=== PATIENT | male | born 1995 | race Caucasian/White ===

== ENCOUNTER 2025-04-07 21:15 | Inpatient (IN) | payer OTHER, SELFPAY ==
[2025-04-07] VITALS (9 sets, daily range): BP systolic 127–187; BP diastolic 70–99; PULSE 80–111; RESP 15–26; TEMP 36.6–36.8; O2SAT 92–100; BMI 27.6
--- NOTE | 2025-04-07 22:10 | RAD_ITS ---
PROCEDURE: RIGHT ANKLE MIN 3 VIEWS; TIBIA FIBULA 2 VIEWS 04/07/2025 REASON FOR EXAM: TRAUMA TECHNIQUE: Procedure Code: RADANK; RADTF Modality: DX Procedure: ANKLE MIN 3 VIEWS; TIBIA FIBULA 2 VIEWS Laterality: Right COMPARISON: None. FINDINGS: Acute laterally displaced oblique fracture of the distal tibial shaft. Acute medial displaced oblique fracture of the mid fibular shaft, with posterolateral angulation. Congruent ankle mortise. No dislocation. Preserved visualized joint spaces. Generalized soft tissue swelling about the lower leg/ankle. RAD/Tibia & Fibula 2 Views IMPRESSION: Acute displaced oblique fractures of the mid fibular shaft, and distal tibial s haft. Reading Location: [id number]
--- NOTE | 2025-04-07 22:10 | RAD_ITS ---
PROCEDURE: RIGHT ANKLE MIN 3 VIEWS; TIBIA FIBULA 2 VIEWS 04/07/2025 REASON FOR EXAM: TRAUMA TECHNIQUE: Procedure Code: RADANK; RADTF Modality: DX Procedure: ANKLE MIN 3 VIEWS; TIBIA FIBULA 2 VIEWS Laterality: Right COMPARISON: None. FINDINGS: Acute laterally displaced oblique fracture of the distal tibial shaft. Acute medial displaced oblique fracture of the mid fibular shaft, with posterolateral angulation. Congruent ankle mortise. No dislocation. Preserved visualized joint spaces. Generalized soft tissue swelling about the lower leg/ankle. RAD/Ankle min 3 Views IMPRESSION: Acute displaced oblique fractures of the mid fibular shaft, and distal tibial s haft. Reading Location: [id number]
[2025-04-07 22:53] LABS: Hematocrit 44.6 % (40-54); Hemoglobin 15.4 g/dL (13.0-16.5); Immature Granulocytes Count 0.040 X10^3/uL (0.0-0.0); Mean Corp Hgb Conc 34.5 g/dL (32-36); Mean Corpuscular Volume 87.1 fL (80-94); Mean Platelet Vol. 9.6 fl (6.2-12.0); NRBC Flagged by Analyzer 0 % (0-5); Platelet Count 282 K/mm3 (150-450); RBC Distribution Width CV 12.3 % (11.6-14.6); RBC Distribution Width SD 39.3 fl (35.1-43.9); Red Blood Count 5.12 M/mm3 (4.6-6.2); White Blood Count 12.2 K/mm3 (4.4-11.0)
[2025-04-07 23:11] LABS: Anion Gap 13 (5-15); BUN 14 mg/dL (4-19); BUN/Creat Ratio 14.1 RATIO (10-20); Calcium,Total 9.5 mg/dL (7.6-11.0); Carbon Dioxide 25.4 mmol/L (21.0-32.0); Chloride 101 mmol/L (98-108); Estimated Creatinine Clearance 128.83 ml/min (50-250); Glucose 134 mg/dL (70-99); Potassium 3.7 mmol/L (3.3-5.1)
--- NOTE | 2025-04-07 23:40 | EDS_ITS ---
HPI History of Present Illness Chief Complaint: Fall Informant: patient, spouse/S.O. and family Narrative Narrative: 29-year-old male states that he missed stepped going down a flight of stairs. He fell down approximately 7 stairs getting his right ankle twisted underneath him. He notes an abrasion to the right forearm and pain to the right leg. EMS notes an obvious deformity to the right lower leg and they vacuum splinted him. He was given fentanyl and route to the hospital. He denies any head back or neck injuries. No loss of consciousness. [facility] Medical History Anxiety Depressed Home Medications ?Medication ?Instructions ?Recorded ?Last Taken ?Type escitalopram oxalate 10 mg tablet 10 mg PO DAILY 04/07 Unknown History (Lexapro) lamotrigine 25 mg tablet (Lamictal) 50 mg PO DAILY Unknown History Allergy/AdvReac Type Severity Reaction Status Date / Time No Known Allergies Allergy Verified 04/07/25 21:21 Social History Smoking Status: Never smoker ROS ROS ED Constitutional Constitutional ED: Denies chills or weight loss Eyes Eyes: Denies change in vision or diplopia ENT ENT ED: Denies ear pain, rhinorrhea or sore throat Cardiovascular Cardiovascular: Denies chest pain, orthopnea, palpitations or racing heartbeat Respiratory/Chest Respiratory/Chest: Denies cough, dyspnea or orthopnea Gastrointestinal Gastrointestinal: Denies abdominal pain, diarrhea, nausea or vomiting Genitourinary Genitourinary ED: Denies dysuria, hematuria or urinary frequency Musculoskeletal Musculoskeletal: Reports other Details: Right leg deformity ; Denies arthralgias, back pain, myalgias or neck pain Integumentary Reports Abrasions; Denies abscess or rash Neurologic Neurologic: Denies headache(s) or weakness Psychiatric Psychiatric: Denies anxiety, depression, suicidal ideation or suicidal thoughts Endocrine Endocrinology: Denies polydipsia, polyphagia or polyuria Allergic/Immunologic Allergic/Immunologic ED: Denies mouth swelling, tongue swelling or urticaria EXAM Physical Exam Const Vital Signs: 04/07/25 21:16 04/07/25 21:22 04/07/25 22:15 Temperature 98.2 F Temperature Source Oral Pulse Rate 85 80 Pulse Rate [1 (Initial Baseline)] Pulse Rate [2] Pulse Rate [3] Pulse Rate [4] Pulse Rate [5] Respiratory Rate 16 16 Respiratory Rate [1 (Initial Baseline)] Respiratory Rate [2] Respiratory Rate [3] Respiratory Rate [4] Respiratory Rate [5] Respiratory Effort Normal Non-Labored Respiratory Depth Normal Respiratory Pattern Normal Blood Pressure 134/82 H 146/78 H Blood Pressure [1 (Initial Baseline)] Blood Pressure [2] Blood Pressure [3] Blood Pressure [4] Blood Pressure [5] Blood Pressure Mean 99 100 Baseline BP Pulse Ox 94 98 Oxygen Delivery Method Room Air Room Air Oxygen Delivery Method [1 (Initial Baseline)] Oxygen Delivery Method [3] Oxygen Delivery Method [4] Oxygen Delivery Method [5] Oxygen Flow Rate (L/min) Oxygen Flow Rate (L/min) [1 (Initial Baseline)] Oxygen Flow Rate (L/min) [2] Oxygen Flow Rate (L/min) [3] Oxygen Flow Rate (L/min) [4] Oxygen Flow Rate (L/min) [5] EtCo2 - Document during CPR and with ROSC EtCo2 - Document during CPR and with ROSC [1 (Initial Baseline)] EtCo2 - Document during CPR and with ROSC [2] EtCo2 - Document during CPR and with ROSC [3] EtCo2 - Document during CPR and with ROSC [4] EtCo2 - Document during CPR and with ROSC [5] 04/07/25 23:00 04/07/25 23:08 04/07/25 23:08 Temperature Temperature Source Pulse Rate 80 Pulse Rate [1 (Initial Baseline)] Pulse Rate [2] Pulse Rate [3] Pulse Rate [4] Pulse Rate [5] Respiratory Rate 15 Respiratory Rate [1 (Initial Baseline)] Respiratory Rate [2] Respiratory Rate [3] Respiratory Rate [4] Respiratory Rate [5] Respiratory Effort Respiratory Depth Respiratory Pattern Blood Pressure 134/78 H Blood Pressure [1 (Initial Baseline)] Blood Pressure [2] Blood Pressure [3] Blood Pressure [4] Blood Pressure [5] Blood Pressure Mean 96 Baseline BP Pulse Ox 99 100 Oxygen Delivery Method Nasal Cannula Oxygen Delivery Method [1 (Initial Baseline)] Oxygen Delivery Method [3] Oxygen Delivery Method [4] Oxygen Delivery Method [5] Oxygen Flow Rate (L/min) 2 Oxygen Flow Rate (L/min) [1 (Initial Baseline)] Oxygen Flow Rate (L/min) [2] Oxygen Flow Rate (L/min) [3] Oxygen Flow Rate (L/min) [4] Oxygen Flow Rate (L/min) [5] EtCo2 - Document during CPR and with ROSC 36 EtCo2 - Document during CPR and with ROSC [1 (Initial Baseline)] EtCo2 - Document during CPR and with ROSC [2] EtCo2 - Document during CPR and with ROSC [3] EtCo2 - Document during CPR and with ROSC [4] EtCo2 - Document during CPR and with ROSC [5] 04/07/25 23:08 04/07/25 23:22 04/07/25 23:41 Temperature 98 F Temperature Source Pulse Rate 80 94 Pulse Rate [1 (Initial Baseline)] 102 H Pulse Rate [2] 100 Pulse Rate [3] 100 Pulse Rate [4] 111 H Pulse Rate [5] 95 Respiratory Rate 16 16 Respiratory Rate [1 (Initial Baseline)] 20 H Respiratory Rate [2] 26 H Respiratory Rate [3] 25 H Respiratory Rate [4] 26 H Respiratory Rate [5] 19 H Respiratory Effort Respiratory Depth Respiratory Pattern Blood Pressure 138/78 H 127/89 H Blood Pressure [1 (Initial Baseline)] 132/96 H Blood Pressure [2] 135/92 H Blood Pressure [3] 154/78 H Blood Pressure [4] 187/70 H Blood Pressure [5] 148/86 H Blood Pressure Mean Baseline BP 138/78 Pulse Ox 100 99 Oxygen Delivery Method Nasal Cannula Nasal Cannula Oxygen Delivery Method [1 (Initial Baseline)] Nasal Cannula Oxygen Delivery Method [3] Nasal Cannula Oxygen Delivery Method [4] Nasal Cannula Oxygen Delivery Method [5] Room Air Oxygen Flow Rate (L/min) 2 2 Oxygen Flow Rate (L/min) [1 (Initial Baseline)] 2 Oxygen Flow Rate (L/min) [2] 2 Oxygen Flow Rate (L/min) [3] 3 Oxygen Flow Rate (L/min) [4] 3 Oxygen Flow Rate (L/min) [5] 3 EtCo2 - Document during CPR and with ROSC 35 49 EtCo2 - Document during CPR and with ROSC [1 (Initial Baseline)] 42 EtCo2 - Document during CPR and with ROSC [2] 25 EtCo2 - Document during CPR and with ROSC [3] 30 EtCo2 - Document during CPR and with ROSC [4] 46 EtCo2 - Document during CPR and with ROSC [5] 42 04/07/25 23:45 04/07/25 23:49 04/07/25 23:51 Temperature 98.2 F Temperature Source Pulse Rate 88 94 94 Pulse Rate [1 (Initial Baseline)] Pulse Rate [2] Pulse Rate [3] Pulse Rate [4] Pulse Rate [5] Respiratory Rate 20 H 15 15 Respiratory Rate [1 (Initial Baseline)] Respiratory Rate [2] Respiratory Rate [3] Respiratory Rate [4] Respiratory Rate [5] Respiratory Effort Respiratory Depth Respiratory Pattern Blood Pressure 141/99 H 139/87 H 139/87 H Blood Pressure [1 (Initial Baseline)] Blood Pressure [2] Blood Pressure [3] Blood Pressure [4] Blood Pressure [5] Blood Pressure Mean 104 Baseline BP Pulse Ox 95 98 98 Oxygen Delivery Method Room Air Room Air Oxygen Delivery Method [1 (Initial Baseline)] Oxygen Delivery Method [3] Oxygen Delivery Method [4] Oxygen Delivery Method [5] Oxygen Flow Rate (L/min) Oxygen Flow Rate (L/min) [1 (Initial Baseline)] Oxygen Flow Rate (L/min) [2] Oxygen Flow Rate (L/min) [3] Oxygen Flow Rate (L/min) [4] Oxygen Flow Rate (L/min) [5] EtCo2 - Document during CPR and with ROSC 45 46 EtCo2 - Document during CPR and with ROSC [1 (Initial Baseline)] EtCo2 - Document during CPR and with ROSC [2] EtCo2 - Document during CPR and with ROSC [3] EtCo2 - Document during CPR and with ROSC [4] EtCo2 - Document during CPR and with ROSC [5] 04/08/25 00:00 Temperature Temperature Source Pulse Rate 88 Pulse Rate [1 (Initial Baseline)] Pulse Rate [2] Pulse Rate [3] Pulse Rate [4] Pulse Rate [5] Respiratory Rate 18 Respiratory Rate [1 (Initial Baseline)] Respiratory Rate [2] Respiratory Rate [3] Respiratory Rate [4] Respiratory Rate [5] Respiratory Effort Respiratory Depth Respiratory Pattern Blood Pressure 128/70 H Blood Pressure [1 (Initial Baseline)] Blood Pressure [2] Blood Pressure [3] Blood Pressure [4] Blood Pressure [5] Blood Pressure Mean 89 Baseline BP Pulse Ox 98 Oxygen Delivery Method Oxygen Delivery Method [1 (Initial Baseline)] Oxygen Delivery Method [3] Oxygen Delivery Method [4] Oxygen Delivery Method [5] Oxygen Flow Rate (L/min) Oxygen Flow Rate (L/min) [1 (Initial Baseline)] Oxygen Flow Rate (L/min) [2] Oxygen Flow Rate (L/min) [3] Oxygen Flow Rate (L/min) [4] Oxygen Flow Rate (L/min) [5] EtCo2 - Document during CPR and with ROSC EtCo2 - Document during CPR and with ROSC [1 (Initial Baseline)] EtCo2 - Document during CPR and with ROSC [2] EtCo2 - Document during CPR and with ROSC [3] EtCo2 - Document during CPR and with ROSC [4] EtCo2 - Document during CPR and with ROSC [5] Positive well nourished and well developed General Appearance ED: well developed and NAD HEENT Reports normocephalic, head/scalp atraumatic and moist mucous membranes Eyes PERRL and EOMs intact bilaterally Neck full ROM, no lymphadenopathy, supple and no JVD General: Negative for tenderness Resp normal respiratory effort and clear to auscultation bilaterally Cardio regular rate, regular rhythm and no murmurs GI normal to inspection, nondistended, normoactive bowel sounds and non-tender Palpation: soft Back/Spine no CVA tenderness and normal ROM Extremity Extremity Narrative: There is significant swelling and deformity to the right distal leg just proximal to the ankle. Most the swelling is medial and anterior. Distally he appears neurovascular intact with excellent capillary refill strong dorsalis pedis and posterior tibial pulses. Sensation is preserved. The skin appears intact. General Extremety ED: Negative for edema General Extremity: Negative for edema Neuro oriented x3 and CN's II-XII intact bilaterally Becky Coma Scale: document GCS findings Spontaneous Obeys Commands Oriented 15 Sensorium / Orientation: alert Motor Exam: strength 5/5 throughout Psych mental status grossly normal Mood & Affect: Negative for depressed or tearful Skin no rashes or lesions noted Skin Narrative: There is an abrasion to the posterior lateral aspect of the right forearm. No pain with range of motion. Neurovascular intact. PROC Procedures Procedural Sedation 1 (Initial Baseline): Consent Signed: Yes Any Problems With Anesthesia: No You/Your family experience fever (hyperthermia) w/anesthesia: No Sedation medication: Propofol Dose: 150 Route: IV Total Moderate Sedation Units: 11 Maliampati Score: Class II ASA Classification: I MDM MDM MDM Narrative Medical decision making narrative: Differential diagnosis includes but not limited to tibia fibular fracture forearm fracture neurovascular injury compartment syndrome ankle sprain syn desmosis injury IV was established by EMS and he did receive fentanyl. Independent or potation of the plain films of the right tib-fib and ankle is a displaced mid fibular fracture and distal spiral fracture of the tibia. I spoke with orthopedics and plan will be admission for surgery tomorrow. Patient provided informed written consent for procedural sedation for splinting. Patient received 1 mg/kg bolus of propofol followed by half milligram per kilogram bolus to achieve and maintain sedation. Patient was placed in a well-padded Ortho-Glass posterior long-leg and stirrup splint. He remained neurovascularly intact pre and post application. He recovered from the sedation without incident. It was noted that the patient did have a mild degree of hypoxia and had snoring respirations with the sedation. Family states that this is typical for him and they have recommended have a sleep study in the past. At this point plan of care is admission. I do not see any evidence of compartment syndrome at this time. Patient was also reassessed at approximately 0015 hrs. He remains neurologically intact. Normal sensation pink toes excellent capillary refill. No paresthesias noted. History & Record Review Discussion w/independent historian: Patient Lab Data Attestation: I reviewed the patient's lab results. Labs: Laboratory Results - last 24 hr 04/07/25 22:46 WBC 12.2 H RBC 5.12 Hgb 15.4 Hct 44.6 MCV 87.1 MCH 30.1 MCHC 34.5 RDW Std Deviation 39.3 RDW Coeff of Andrea 12.3 Plt Count 282 MPV 9.6 Immature Gran % (Auto) 0.300 Neut % (Auto) 72.6 H Lymph % (Auto) 21.6 Andrews % (Auto) 4.9 Eos % (Auto) 0.4 Baso % (Auto) 0.2 Absolute Neuts (auto) 8.9 H Absolute Lymphs (auto) 2.64 Nucleated RBC % 0 Sodium 139 Potassium 3.7 Chloride 101 Carbon Dioxide 25.4 Anion Gap 13 BUN 14 Creatinine 1.02 Estim Creat Clear Calc 128.83 Est GFR (MDRD) Non-Af 101 BUN/Creatinine Ratio 14.1 Glucose 134 H Calcium 9.5 Radiography Diagnostic Testing: Clinical Impression(s) from Imaging Studies Ankle X-Ray 04/07/25 22:10 IMPRESSION: Acute displaced oblique fractures of the mid fibular shaft, and distal tibial shaft. Reading Location: [facility] Tibia/Fibula X-Ray 04/07/25 22:10 IMPRESSION: Acute displaced oblique fractures of the mid fibular shaft, and distal tibial shaft. Reading Location: [facility] Management Discussion w/another healthcare provider: Hospitalist (Dr. Ellis) and Process Validation Engineer (Dr. Canales) Discharge Plan Dx/Rx/DC Orders Clinical Impression: Fall, Abrasion forearm, Closed fracture of tibia and fibula Disposition Disposition: Acute Care Hospital [facility]
--- NOTE | 2025-04-07 23:59 | PCM.HP.STD ---
HPI - General General Date of Admission: 04/07/25 Date of Service: 04/07/25 Chief Complaint: Fall with injury HPI Narrative REFUGIO MARTINEZ, is a 29 M who presents to the emergency room after falling down a flight of stairs. Patient fell down approximately 7 stairs getting his right ankle twisted underneath and getting an abrasion to his right forearm as well. Patient's chief complaint is pain in his right lower leg and x-ray demonstrates a tib-fib fracture. Patient was splinted under conscious sedation in the emergency room. Patient states his pain is currently controlled. No chest pain, shortness of breath fever chills nausea vomiting or diarrhea or other medical complaints at this time. He will be admitted to general medical floor under the care of of orthopedic surgery. [facility] Medical History Anxiety Depressed Home Medications ?Medication ?Instructions ?Recorded ?Last Taken ?Type escitalopram oxalate 10 mg tablet 10 mg PO DAILY 04/07/25 Unknown History (Lexapro) lamotrigine 25 mg tablet (Lamictal) 50 mg PO DAILY 04/07/25 Unknown History Allergy/AdvReac Type Severity Reaction Status Date / Time No Known Allergies Allergy Verified 04/07/25 21:21 Social History Smoking Status: Never smoker ROS Constitutional Constitutional: Denies chills or fever(s) Eyes Eyes: Denies blurry vision ENT HEENT: Denies abnormal hearing Cardiovascular Cardiovascular: Denies chest pain Respiratory/Chest Respiratory/Chest: Denies shortness of breath at rest Gastrointestinal Gastrointestinal: Denies abdominal pain Genitourinary Genitourinary: Denies dysuria Musculoskeletal Musculoskeletal: Reports extremity pain Integumentary Integumentary: Denies dry skin Neurologic Neurologic: Denies confusion or dizziness Psychiatric Psychiatric: Denies anxiety Vital Signs Vital Signs Vital Signs: 04/07/25 21:16 04/07/25 21:22 04/07/25 22:15 Temperature 98.2 F Temperature Source Oral Pulse Rate 85 80 Pulse Rate [1 (Initial Baseline)] Pulse Rate [2] Pulse Rate [3] Pulse Rate [4] Pulse Rate [5] Respiratory Rate 16 16 Respiratory Rate [1 (Initial Baseline)] Respiratory Rate [2] Respiratory Rate [3] Respiratory Rate [4] Respiratory Rate [5] Respiratory Effort Normal Non-Labored Respiratory Depth Normal Respiratory Pattern Normal Blood Pressure 134/82 H 146/78 H Blood Pressure [1 (Initial Baseline)] Blood Pressure [2] Blood Pressure [3] Blood Pressure [4] Blood Pressure [5] Blood Pressure Mean 99 100 Baseline BP Pulse Ox 94 98 Oxygen Delivery Method Room Air Room Air Oxygen Delivery Method [1 (Initial Baseline)] Oxygen Delivery Method [3] Oxygen Delivery Method [4] Oxygen Delivery Method [5] Oxygen Flow Rate (L/min) Oxygen Flow Rate (L/min) [1 (Initial Baseline)] Oxygen Flow Rate (L/min) [2] Oxygen Flow Rate (L/min) [3] Oxygen Flow Rate (L/min) [4] Oxygen Flow Rate (L/min) [5] EtCo2 - Document during CPR and with ROSC EtCo2 - Document during CPR and with ROSC [1 (Initial Baseline)] EtCo2 - Document during CPR and with ROSC [2] EtCo2 - Document during CPR and with ROSC [3] EtCo2 - Document during CPR and with ROSC [4] EtCo2 - Document during CPR and with ROSC [5] 04/07/25 23:00 04/07/25 23:08 04/07/25 23:08 Temperature Temperature Source Pulse Rate 80 Pulse Rate [1 (Initial Baseline)] Pulse Rate [2] Pulse Rate [3] Pulse Rate [4] Pulse Rate [5] Respiratory Rate 15 Respiratory Rate [1 (Initial Baseline)] Respiratory Rate [2] Respiratory Rate [3] Respiratory Rate [4] Respiratory Rate [5] Respiratory Effort Respiratory Depth Respiratory Pattern Blood Pressure 134/78 H Blood Pressure [1 (Initial Baseline)] Blood Pressure [2] Blood Pressure [3] Blood Pressure [4] Blood Pressure [5] Blood Pressure Mean 96 Baseline BP Pulse Ox 99 100 Oxygen Delivery Method Nasal Cannula Oxygen Delivery Method [1 (Initial Baseline)] Oxygen Delivery Method [3] Oxygen Delivery Method [4] Oxygen Delivery Method [5] Oxygen Flow Rate (L/min) 2 Oxygen Flow Rate (L/min) [1 (Initial Baseline)] Oxygen Flow Rate (L/min) [2] Oxygen Flow Rate (L/min) [3] Oxygen Flow Rate (L/min) [4] Oxygen Flow Rate (L/min) [5] EtCo2 - Document during CPR and with ROSC 36 EtCo2 - Document during CPR and with ROSC [1 (Initial Baseline)] EtCo2 - Document during CPR and with ROSC [2] EtCo2 - Document during CPR and with ROSC [3] EtCo2 - Document during CPR and with ROSC [4] EtCo2 - Document during CPR and with ROSC [5] 04/07/25 23:08 04/07/25 23:22 04/07/25 23:41 Temperature 98 F Temperature Source Pulse Rate 80 94 Pulse Rate [1 (Initial Baseline)] 102 H Pulse Rate [2] 100 Pulse Rate [3] 100 Pulse Rate [4] 111 H Pulse Rate [5] 95 Respiratory Rate 16 16 Respiratory Rate [1 (Initial Baseline)] 20 H Respiratory Rate [2] 26 H Respiratory Rate [3] 25 H Respiratory Rate [4] 26 H Respiratory Rate [5] 19 H Respiratory Effort Respiratory Depth Respiratory Pattern Blood Pressure 138/78 H 127/89 H Blood Pressure [1 (Initial Baseline)] 132/96 H Blood Pressure [2] 135/92 H Blood Pressure [3] 154/78 H Blood Pressure [4] 187/70 H Blood Pressure [5] 148/86 H Blood Pressure Mean Baseline BP 138/78 Pulse Ox 100 99 Oxygen Delivery Method Nasal Cannula Nasal Cannula Oxygen Delivery Method [1 (Initial Baseline)] Nasal Cannula Oxygen Delivery Method [3] Nasal Cannula Oxygen Delivery Method [4] Nasal Cannula Oxygen Delivery Method [5] Room Air Oxygen Flow Rate (L/min) 2 2 Oxygen Flow Rate (L/min) [1 (Initial Baseline)] 2 Oxygen Flow Rate (L/min) [2] 2 Oxygen Flow Rate (L/min) [3] 3 Oxygen Flow Rate (L/min) [4] 3 Oxygen Flow Rate (L/min) [5] 3 EtCo2 - Document during CPR and with ROSC 35 49 EtCo2 - Document during CPR and with ROSC [1 (Initial Baseline)] 42 EtCo2 - Document during CPR and with ROSC [2] 25 EtCo2 - Document during CPR and with ROSC [3] 30 EtCo2 - Document during CPR and with ROSC [4] 46 EtCo2 - Document during CPR and with ROSC [5] 42 04/07/25 23:45 04/07/25 23:49 04/07/25 23:51 Temperature 98.2 F Temperature Source Pulse Rate 88 94 94 Pulse Rate [1 (Initial Baseline)] Pulse Rate [2] Pulse Rate [3] Pulse Rate [4] Pulse Rate [5] Respiratory Rate 20 H 15 15 Respiratory Rate [1 (Initial Baseline)] Respiratory Rate [2] Respiratory Rate [3] Respiratory Rate [4] Respiratory Rate [5] Respiratory Effort Respiratory Depth Respiratory Pattern Blood Pressure 141/99 H 139/87 H 139/87 H Blood Pressure [1 (Initial Baseline)] Blood Pressure [2] Blood Pressure [3] Blood Pressure [4] Blood Pressure [5] Blood Pressure Mean 104 Baseline BP Pulse Ox 95 98 98 Oxygen Delivery Method Room Air Room Air Oxygen Delivery Method [1 (Initial Baseline)] Oxygen Delivery Method [3] Oxygen Delivery Method [4] Oxygen Delivery Method [5] Oxygen Flow Rate (L/min) Oxygen Flow Rate (L/min) [1 (Initial Baseline)] Oxygen Flow Rate (L/min) [2] Oxygen Flow Rate (L/min) [3] Oxygen Flow Rate (L/min) [4] Oxygen Flow Rate (L/min) [5] EtCo2 - Document during CPR and with ROSC 45 46 EtCo2 - Document during CPR and with ROSC [1 (Initial Baseline)] EtCo2 - Document during CPR and with ROSC [2] EtCo2 - Document during CPR and with ROSC [3] EtCo2 - Document during CPR and with ROSC [4] EtCo2 - Document during CPR and with ROSC [5] Weight Weight: 227 lb 1.218 oz Body Mass Index (BMI) 27.6 Physical Exam Const oriented x3 General Appearance: cooperative and well developed HEENT normocephalic and head/scalp atraumatic Eyes PERRL Neck no lymphadenopathy Lymph Lymphatic: no lymphadenopathy noted Resp normal respiratory effort, normal air movement and clear to auscultation bilaterally Cardio regular rate, regular rhythm, S1 normal heart sound and S2 normal heart sound GI normal to inspection, nondistended, normoactive bowel sounds Extremity Extremity Narrative: Right lower extremity splinted Skin General Skin Exam: turgor normal Neuro no focal motor deficits and no sensory deficits noted Psych thought process normal and affect normal Results Lab / Micro Data 04/07/25 22:46 04/07/25 22:46 Labs: Laboratory Results - last 24 hr 04/07/25 22:46: WBC 12.2 H, RBC 5.12, Hgb 15.4, Hct 44.6, MCV 87.1, MCH 30.1, MCHC 34.5, RDW Std Deviation 39.3, RDW Coeff of Andrea 12.3, Plt Count 282, MPV 9.6, Immature Gran % (Auto) 0.300, Neut % (Auto) 72.6 H, Lymph % (Auto) 21.6, [place] % (Auto) 4.9, Eos % (Auto) 0.4, Baso % (Auto) 0.2, Absolute Neuts (auto) 8.9 H, Absolute Lymphs (auto) 2.64, Nucleated RBC % 0, Sodium 139, Potassium 3.7, Chloride 101, Carbon Dioxide 25.4, Anion Gap 13, BUN 14, Creatinine 1.02, Estim Creat Clear Calc 128.83, Est GFR (MDRD) Non-Af 101, BUN/Creatinine Ratio 14.1, Glucose 134 H, Calcium 9.5 Imaging Radiology Impression Ankle X-Ray 04/07/25 22:10 IMPRESSION: Acute displaced oblique fractures of the mid fibular shaft, and distal tibial shaft. Reading Location: [facility] Tibia/Fibula X-Ray 04/07/25 22:10 IMPRESSION: Acute displaced oblique fractures of the mid fibular shaft, and distal tibial shaft. Reading Location: [facility] Assessment & Plan Assessment/Plan (1) Closed fracture of tibia and fibula: (2) Abrasion forearm: (3) Fall: PLAN: Plan 1 fall with fracture to the tibia and fibula of the right lower extremity?admit patient to general medical floor, orthopedic surgery to manage the case. Will maintain patient n.p.o. pending evaluation by orthopedic surgery 2. CODE STATUS full verified 3. History of depression stable on Lamictal and back citalopram will continue those while he is admitted 4. DVT prophylaxis?SCD to left lower extremity will hold using low molecular weight heparin as surgery is pending
[2025-04-08] VITALS (25 sets, daily range): BP systolic 124–177; BP diastolic 70–110; PULSE 87–109; RESP 14–20; TEMP 36.4–37.1; O2SAT 89–98; BMI 27.4
[2025-04-08] MEDS: 0.9% Normal Saline (1000mL) 1,000 ML 125 ML IV ×3 (01:20→20:05)
[2025-04-08] MEDS: 0.9% Saline Lock 10 ML Syringe IV ×2 (02:15→22:12)
[2025-04-08] MEDS: HYDROmorphone 0.5 MG/0.5 ML SYRINGE IV (02:15)
[2025-04-08 05:16] LABS: Hematocrit 40.5 % (40-54); Hemoglobin 13.8 g/dL (13.0-16.5); Immature Granulocytes Count 0.030 X10^3/uL (0.0-0.0); Mean Corp Hgb Conc 34.1 g/dL (32-36); Mean Corpuscular Volume 87.5 fL (80-94); Mean Platelet Vol. 9.6 fl (6.2-12.0); NRBC Flagged by Analyzer 0 % (0-5); Platelet Count 260 K/mm3 (150-450); RBC Distribution Width CV 12.7 % (11.6-14.6); RBC Distribution Width SD 40.7 fl (35.1-43.9); Red Blood Count 4.63 M/mm3 (4.6-6.2); White Blood Count 9.7 K/mm3 (4.4-11.0)
[2025-04-08 05:29] LABS: Prothrombin Time (Protime)PT. 13.5 SECONDS (11.7-14.9)
[2025-04-08 05:45] LABS: Anion Gap 12 (5-15); BUN 13 mg/dL (4-19); BUN/Creat Ratio 15.1 RATIO (10-20); Calcium,Total 9.5 mg/dL (7.6-11.0); Carbon Dioxide 22.5 mmol/L (21.0-32.0); Chloride 105 mmol/L (98-108); Estimated Creatinine Clearance 147.65 ml/min (50-250); Glucose 111 mg/dL (70-99); Potassium 4.2 mmol/L (3.3-5.1)
--- NOTE | 2025-04-08 09:43 | CON.PCM_ITS ---
Assessment & Plan Assessment/Plan (1) Closed fracture of tibia and fibula: QUALIFIERS: Encounter type: initial encounter Laterality: right Qualified Code(s): S82.201A - Unspecified fracture of shaft of right tibia, initial encounter for closed fracture; S82.401A - Unspecified fracture of shaft of right fibula, initial encounter for closed fracture PLAN: Plan Displaced distal tibia and fibula fracture thorough discussion was had with the patient regards to his injury he does not show any signs of compartment syndrome or open injury. I discussed with him intra intramedullary rodding of the tibia. There is benefits alternatives of the procedure including risk of bleeding infection nerve artery tissue damage need for further surgery continued pain, expected postoperative course. IV antibiotics on-call to the OR n.p.o. proceed to the OR today. HPI Consult Data Date of Consult: 04/08/25 HPI Narrative HPI Narrative: REFUGIO MARTINEZ, is a 29 M who presents after a fall down his home carpeted stairs yesterday landing onto his right leg with his Wayt over his leg sustained a displaced tibia and fibula fracture on x-ray seen in the emergency room department. His pain is controlled he had some numbness and tingling overnight , his pain is controlled. [facility] Medical History Anxiety Depressed Home Medications ?Medication ?Instructions ?Recorded ?Last Taken ?Type escitalopram oxalate 10 mg tablet 10 mg PO DAILY depre ssion/anxiety 04/07/25 04/07/25 History (Lexapro) lamotrigine 25 mg tablet (Lamictal) 50 mg PO DAILY moo d stabilization 04/07/25 04/07/25 History mirtazapine 7.5 mg tablet 7.5 mg PO QPM sleep 04/08/25 04/06/25 History Allergy/AdvReac Type Severity Reaction Status Date / Time No Known Allergies Allergy Verified 04/07/25 21:21 Social History Smoking Status: Never smoker Physical Exam Const alert, oriented x3 and no apparent distress General Appearance: cooperative and comfortable Orientation / Consciousness: awake and oriented to person HEENT normocephalic and hearing grossly normal bilaterally Head and Scalp: normal to inspection Eyes General Eye: normal appearance of both eyes Neck General: normal visual inspection Chest inspection of chest normal Resp normal respiratory effort and normal air movement Cardio regular rate Extremity Extremity Narrative: Right lower extremity is placed in a posterior splint and stirrup his compartments are soft he is able to wiggle his toes minimally intact sensation light touch. Lab / Micro Data 04/08/25 04:36 04/08/25 04:36 Labs: Laboratory Results - last 24 hr 04/07/25 22:46: WBC 12.2 H, RBC 5.12, Hgb 15.4, Hct 44.6, MCV 87.1, MCH 30.1, MCHC 34.5, RDW Std Deviation 39.3, RDW Coeff of Andrea 12.3, Plt Count 282, MPV 9.6, Immature Gran % (Auto) 0.300, Neut % (Auto) 72.6 H, Lymph % (Auto) 21.6, [place] % (Auto) 4.9, Eos % (Auto) 0.4, Baso % (Auto) 0.2, Absolute Neuts (auto) 8.9 H, Absolute Lymphs (auto) 2.64, Nucleated RBC % 0, Sodium 139, Potassium 3.7, Chloride 101, Carbon Dioxide 25.4, Anion Gap 13, BUN 14, Creatinine 1.02, Estim Creat Clear Calc 128.83, Est GFR (MDRD) Non-Af 101, BUN/Creatinine Ratio 14.1, Glucose 134 H, Calcium 9.5 04/08/25 04:36: WBC 9.7, RBC 4.63, Hgb 13.8, Hct 40.5, MCV 87.5, MCH 29.8, MCHC 34.1, RDW Std Deviation 40.7, RDW Coeff of Andrea 12.7, Plt Count 260, MPV 9.6, Immature Gran % (Auto) 0.300, Neut % (Auto) 62.1, Lymph % (Auto) 29.7, [place] % (Auto) 7.3, Eos % (Auto) 0.4, Baso % (Auto) 0.2, Absolute Neuts (auto) 6.0, Absolute Lymphs (auto) 2.87, Nucleated RBC % 0, PT 13.5, INR 1.0, Sodium 139, Potassium 4.2, Chloride 105, Carbon Dioxide 22.5, Anion Gap 12, BUN 13, Creatinine 0.89, Estim Creat Clear Calc 147.65, Est GFR (MDRD) Non-Af 118, BUN/Creatinine Ratio 15.1, Glucose 111 H, Calcium 9.5 Imaging Radiology Impression Ankle X-Ray 04/07/25 22:10 IMPRESSION: Acute displaced oblique fractures of the mid fibular shaft, and distal tibial shaft. Reading Location: [facility] Tibia/Fibula X-Ray 04/07/25 22:10
--- NOTE | 2025-04-08 11:25 | CASEMGMT ---
JACKELYN BRITO Assessment: Face to Face with pt for initial transition planning/care coordination assessment. JACKELYN BRITO introduced self and role at [facility], pt voices understanding and consents to assessment. Pt is A&O x4 and answers all questions appropriately at this time. Pt sitting up in bed with and sister at bedside. Pt agreeable to assessment with family members present. Care providers, pharmacy, and demographics verified/updated. Admitting Dx: R tibia/fibula fx Strata Score: 1 PCP:Kya, provided pt with a local healthcare directory pamphlet. Specialists:[facility] Preferred Pharmacy:[facility] Retail Insurance: [employer] Prescription Benefit: yes LNOK: Lauren Allen, Living Arrangements: Pt lives with in a two story home with 4 steps to enter with a rail. Pt reports he is typically I in ADL/IADLs and denies concerns at home. Transportation: Pt drives self and denies concerns with transportation. Pt or sister able to transport pt post op. DME:Denies HHC/SNF: Denies hx of Pt states no concerns with going home at time of dc. Pt to have OR today. Pt aware therapy will eval him after OR and make recommendations. Should pt need DME post OR, pt chose [employer] after a verbal local in network list of DME companies were given. Pt states he fell d/t the one step being thinner than the other. Pt states I wish there was a better story to tell you. Pt states no further concerns/needs. CM to follow. Advised pt to ask CM if any further questions/concerns/needs arise, voices understanding. Pt Goal: Home Plan: Home, follow therapy recommendations and need for DME Brian HAYDEN CM
--- NOTE | 2025-04-08 13:32 | PN.HOSP_ITS ---
Reason for Visit Chief Complaint: Fall with injury Subjective Subjective Feeling okay right now. Does have some pain in his right leg in the cast. Objective Data Objective Data Vital Signs: Vital Signs Temp Pulse Resp BP Pulse Ox O2 Del Method O2 Flow Rate 36.6 C 99 16 128/76 H 97 Room Air 2 04/08/25 12:55 04/08/25 12:55 04/08/25 12:55 04/08/25 12:55 04/08/25 12:55 04/08/25 12:55 04/07/25 23:41 Oxygen Flow Rate (L/min) [5] 3 Oxygen Flow Rate (L/min) [4] 3 Oxygen Flow Rate (L/min) [3] 3 Oxygen Flow Rate (L/min) [2] 2 Oxygen Flow Rate (L/min) [1 ( 2 Initial Baseline)] Oxygen Flow Rate (L/min) 2 Oxygen Delivery Method [5] Room Air Oxygen Delivery Method [4] Nasal Cannula Oxygen Delivery Method [3] Nasal Cannula Oxygen Delivery Method [1 ( Nasal Cannula Initial Baseline)] Oxygen Delivery Method Room Air Weight: 102.4 kg Body Mass Index (BMI) 27.4 Intake & Output: Intake and Output for Last 24 Hours 04/06/25 04/07/25 04/08/25 23:59 23:59 23:59 Intake Total 0 / 0 958.33 / 958.33 Output Total 100 / 100 Balance 0 / 0 858.33 / 858.33 Lab / Micro Data 04/08/25 04:36 04/08/25 04:36 Labs: Laboratory Results - last 24 hr 04/07/25 22:46: WBC 12.2 H, RBC 5.12, Hgb 15.4, Hct 44.6, MCV 87.1, MCH 30.1, MCHC 34.5, RDW Std Deviation 39.3, RDW Coeff of Andrea 12.3, Plt Count 282, MPV 9.6, Immature Gran % (Auto) 0.300, Neut % (Auto) 72.6 H, Lymph % (Auto) 21.6, [place] % (Auto) 4.9, Eos % (Auto) 0.4, Baso % (Auto) 0.2, Absolute Neuts (auto) 8.9 H, Absolute Lymphs (auto) 2.64, Nucleated RBC % 0, Sodium 139, Potassium 3.7, Chloride 101, Carbon Dioxide 25.4, Anion Gap 13, BUN 14, Creatinine 1.02, Estim Creat Clear Calc 128.83, Est GFR (MDRD) Non-Af 101, BUN/Creatinine Ratio 14.1, Glucose 134 H, Calcium 9.5 04/08/25 04:36: WBC 9.7, RBC 4.63, Hgb 13.8, Hct 40.5, MCV 87.5, MCH 29.8, MCHC 34.1, RDW Std Deviation 40.7, RDW Coeff of Andrea 12.7, Plt Count 260, MPV 9.6, Immature Gran % (Auto) 0.300, Neut % (Auto) 62.1, Lymph % (Auto) 29.7, [place] % (Auto) 7.3, Eos % (Auto) 0.4, Baso % (Auto) 0.2, Absolute Neuts (auto) 6.0, Absolute Lymphs (auto) 2.87, Nucleated RBC % 0, PT 13.5, INR 1.0, Sodium 139, Potassium 4.2, Chloride 105, Carbon Dioxide 22.5, Anion Gap 12, BUN 13, Creatinine 0.89, Estim Creat Clear Calc 147.65, Est GFR (MDRD) Non-Af 118, BUN/Creatinine Ratio 15.1, Glucose 111 H, Calcium 9.5 Radiography Diagnostic Testing: Radiology Impression Ankle X-Ray 04/07/25 22:10 IMPRESSION: Acute displaced oblique fractures of the mid fibular shaft, and distal tibial shaft. Reading Location: [facility] Tibia/Fibula X-Ray 04/07/25 22:10 IMPRESSION: Acute displaced oblique fractures of the mid fibular shaft, and distal tibial shaft. Reading Location: [facility] Physical Exam Const Constitutional Narrative: Resting comfortably in bed. Nontoxic. Afebrile. Extremity Extremity Narrative: Right leg in cast. Moves all extremities spontaneously. Assessment & Plan Assessment/Plan (1) Closed fracture of tibia and fibula: QUALIFIERS: Encounter type: initial encounter Laterality: right Qualified Code(s): S82.201A - Unspecified fracture of shaft of right tibia, initial encounter for closed fracture; S82.401A - Unspecified fracture of shaft of right fibula, initial encounter for closed fracture PLAN: Reduced in the emergency room. Seen by orthopedics in the plan is to take the patient to the operating room today with intramedullary jessie to the tibia. Weightbearing status, follow-up appointments per orthopedics PLAN: Plan Patient medically stable with no active medical issues. Given the patient's young age and good performance status, I do not dissipate the patient requiring a halfway facility Charges/Coding Visit Charges Inpatient E&M: [address] [facility] L1
--- NOTE | 2025-04-08 14:24 | PRE.ANES_ITS ---
ASA Classification* ASA Classification ASA Classification: 2 Assessment & Plan Anesthesia* Anesthesia Assessment Anesthesia Assessment: Discussed sedation and/or anesthesia options, risks, benefits, and alternatives with patient/parents/legal guardian/POA. Questions invited. The patient/parents/legal guardian/POA seems to understand and agrees to proceed with anesthesia plan. Reviewed the physical assessment, medical history, allergy history and patient home medications list prior to surgery/procedure/anesthetic and documented any changes. Performed airway and anesthesia risk assessments. Anesthesia Type Anesthesia Type: General and Block History Source History Obtained from:: Patient and Chart Anesthesia Focused Assessment* Temperature: 97.8 F Pulse Rate: 99 Blood Pressure: 128/76 Respiratory Rate: 16 Pulse Ox: 97 Oxygen Flow Rate (L/min): 2 Airway Assessment Mouth opens: >3 cm Mallampati Score: II Teeth Condition: Intact Neck Range of motion (ROM): Full ROM Labs Anesthesia Preop lab: CBC WBC, (4.4-11.0) 9.7 K/mm3 Today, 04:36 RBC, (4.6-6.2) 4.63 M/mm3 Today, 04:36 Hgb, (13.0-16.5) 13.8 g/dL Today, 04:36 Hct, (40-54) 40.5 % Today, 04:36 Plt Count, (150-450) 260 K/mm3 Today, 04:36 CHEMISTRY Potassium, (3.3-5.1) 4.2 mmol/L Today, 04:36 Sodium, (133-145) 139 mmol/L Today, 04:36 BUN, (4-19) 13 mg/dL Today, 04:36 Creatinine, (0.70-1.20) 0.89 mg/dL Today, 04:36 Glucose, (70-99) 111 mg/dL H Today, 04:36 COAG PT, (11.7-14.9) 13.5 SECONDS Today, 04:36 Pre-Assessment Diagnosis/Proposed Procedure Planned Operative Procedure(s): Repair of fracture right tibia and fibula Anesthesia History Anesthesia History - school counselor: Anesthesia History - school counselor Hx Hospitalization Any Problems With Anesthesia [ No 04/08/25 00:19 1 (Initial Baseline)] Any Problems With Anesthesia No 04/08/25 01:24 Cholinesterase deficiency No 04/08/25 01:24 You/Your Family Experience No 04/08/25 01:24 fever (hyperthermia) with Relationship Recent Exposure to Contagious No 04/08/25 01:24 Disease Does patient have nerve No 04/08/25 01:24 stimulator Patient instructed to have device shut off --Does patient have Pacemaker No 04/08/25 08:38 or ICD? When Was Last Pacemaker Check QUESTION #4 FULL TEXT: You/Your Family Experience fever (hyperthermia) with Anesthesia Last Oral Intake Last Oral intake: Last Oral Intake NPO since 00:00 04/08/25 08:38 Meds taken in AM with sips of water? Meds patient instructed to take am of surgery PONV PONV - school counselor: PONV - school counselor Female HX of Motion Sickness HX of N/V After Surgery Non-Smoker Duration of Surgery greater than 60 minutes Number of Risk Factors PONV Score Height & Weight Height & Weight: Anesthesia: Height & Weight Height 6 ft 4 in 04/08/25 08:38 Weight: 102.4 kg 04/08/25 08:38 Body Mass Index (BMI) 27.4 04/08/25 08:38 Respiratory Assessment Respiratory Assessment - school counselor: Respiratory Tract Infection Hx - school counselor Hx Respiratory Tract Infection No 04/08/25 01:24 STOP Sleep Apnea STOP Sleep Apnea - school counselor: STOP Sleep Apnea - school counselor Hx Hypertension No 04/08/25 00:53 Hx Sleep Apnea No 04/08/25 00:53 CPAP BIPAP Do you snore loudly (louder Yes 04/08/25 00:53 than talking or can be heard Do you often feel tired/ Yes 04/08/25 00:53 fatigued/ sleepy during daytime? Has anyone observed you stop Yes 04/08/25 00:53 breathing during sleep? STOP Results Positive 04/08/25 00:53 QUESTION #5 FULL TEXT : Do you snore loudly (louder than talking or can be heard through closed doors)? Tobacco Use History Tobacco Use History - school counselor: Tobacco Use History - school counselor Tobacco Use Smoking Status Never smoker 04/08/25 00:53 Hx Tobacco Use No 04/08/25 00:53 Years Smoking Packs Smoked per Day Smoking Cessation Date was within the last 15 years Hx Smoking Cessation Date Hx Smoking Cessation Counseling Hematologic Medial History Hematologic Hx - school counselor: Hematologic Medical Hx - primary teacher Hx of Blood Transfusion No 04/08/25 00:53 Hx of Transfusion in last 3 No 04/08/25 00:53 Months Date of Last Transfusion (if within last 3 months) Ever experience any problems No 04/08/25 00:53 with transfusion(s)? Specify any problems Hx of Preganancy in last 3 N/A 04/08/25 00:53 Months Nurse Filling Out Transfusion EVIZZO 04/08/25 00:53 & Questions: Date: 04/08/25 04/08/25 00:53 Time: 01:03 04/08/25 00:53 Patient unable to answer at this time (ie. confused, unrespo /Reproduction History /Reproductive History - school counselor: /Reproductive Hx- school counselor Hx Now No 04/08/25 01:24 Gestational Age (in weeks): EDC: Hx Hx Para Hx Section SAB No 04/08/25 01:24 Does the father of the baby or his family experience fever w Father of the baby Malignant Hypertension history comment Active Medications Active Medications: Current Medications Generic Name Dose Route Start Last Admin Trade Name Freq PRN Reason Stop Dose Admin Acetaminophen 1,000 mg 04/08/25 06:00 04/08/25 06:12 Acetaminophen 500 Mg Tablet PO 1,000 mg Q8 TRAMAINE Administration Escitalopram Oxalate 10 mg 04/08/25 10:00 04/08/25 09:15 Escitalopram Oxalate 10 Mg Tablet PO Not Given DAILY TRAMAINE Hydromorphone HCl 0.5 mg 04/07/25 23:52 04/08/25 02:15 Hydromorphone 0.5 Mg/0.5 Ml Syringe IV 0.5 mg Q2H PRN PRN Administration break through pain Sodium Chloride 1,000 mls @ 125 mls/hr 04/07/25 23:55 04/08/25 08:36 IV 125 mls/hr .Q8H TRAMAINE Administration Sodium Chloride 250 mls @ 15 mls/hr 04/08/25 01:05 IV .[id number] PRN Saline Flush Sodium Chloride 250 mls @ 15 mls/hr 04/08/25 01:05 IV .[id number] PRN Additional IVPB Infusion Influenza Virus Vacc Trival Recomb 45 mcg 04/09/25 10:00 Flu Vaccine (6mos Up) 45 Mcg/0.5 Ml Syringe IM 04/09/25 10:01 .ONCE ONE Lamotrigine 50 mg 04/08/25 10:00 04/08/25 09:15 Lamotrigine 25 Mg Tablet PO Not Given DAILY [facility] Nutritional Formula (Lactose Free) 120 ml 04/08/25 10:00 04/08/25 08:32 Ensure Plus High Protein 120 Ml Liquid PO Not Given 4X/DAY TRAMAINE Ondansetron HCl 4 mg 04/07/25 23:52 Ondansetron 4 Mg/2 Ml Vial IV Q8H PRN PRN NAUSEA/VOMITING Oxycodone HCl 10 mg 04/07/25 23:52 04/08/25 04:11 Oxycodone 5 Mg Tablet PO 10 mg Q4H PRN PRN Administration Pain Score 4-10 Sodium Chloride 10 - 40 ml 04/08/25 01:05 04/08/25 02:15 0.9% Saline Lock 10 Ml Syringe IV 10 ml UD PRN Administration SALINE FLUSH [facility] Medical History Anxiety Depressed Home Medications ?Medication ?Instructions ?Recorded ?Last Taken ?Type escitalopram oxalate 10 mg tablet 10 mg PO DAILY depre ssion/anxiety 04/07/25 04/07/25 History (Lexapro) lamotrigine 25 mg tablet (Lamictal) 50 mg PO DAILY moo d stabilization 04/07/25 04/07/25 History mirtazapine 7.5 mg tablet 7.5 mg PO QPM sleep 04/08/25 04/06/25 History Allergy/AdvReac Type Severity Reaction Status Date / Time No Known Allergies Allergy Verified 04/07/25 21:21 Social History Smoking Status: Never smoker Review of Systems (Anesthesia) ROS Narrative System reviewed and no additional complaints, except as documented.
[2025-04-08] MEDS: Lactated Ringers 1,000 ML 15 ML IV (14:51)
[2025-04-08] MEDS: fentaNYL 100 MCG/2 ML Ampul IV (15:20)
[2025-04-08] MEDS: Cefazolin 1 GM/5 ML Vial 2 GM IV (15:20)
[2025-04-08] MEDS: Lidocaine 1% (5 ml sdv) 5 ML Vial IV (15:24)
--- NOTE | 2025-04-08 15:39 | RAD_ITS ---
PROCEDURE: TIBIA FIBULA 2 VIEWS 04/08/2025 REASON FOR EXAM: IM RODDING TECHNIQUE: Procedure Code: RADTF Modality: DX Procedure: TIBIA FIBULA 2 VIEWS Laterality: Right COMPARISON: Tibia and fibula, 04/07/2025. FINDINGS: 13 images were obtained intraoperatively during intramedullary jessie fixation of a right tibial shaft fracture. Fluoro time: 100.9 seconds. Dose: 5.9 mGy. DAP: 0.1795 mGym2. RAD/Tibia & Fibula 2 Views IMPRESSION: As per findings. Reading Location: [place] [address]
[2025-04-08] MEDS: Bupiv/Epi 0.25% 30 ML Vial (17:14)
[2025-04-08] MEDS: Ketorolac 30 MG/ML Syringe IV (17:19)
--- NOTE | 2025-04-08 17:28 | OP.PCM_ITS ---
Operative Report (Standard) Operative Information Date of Procedure: 04/08/25 Pre-Operative Diagnosis: Right tibia fibula fracture Post-Operative Diagnosis: Same Surgery/Procedure Performed: Right tibia intramedullary rodding harness placer: Yes Regional Merchandising Manager: Qing Tasks completed by international first officer: Implanting device Type of Anesthesia: General RN Documented Start/Stop Times: Operation Date: 04/08/25 15:00 Case Time Into Pre-Op 04/08/25 14:30 Out of Pre-Op 04/08/25 15:16 Anesthesia Start 04/08/25 15:19 Into Room 04/08/25 15:19 Procedure Start 04/08/25 15:45 Procedure End 04/08/25 17:20 Procedure Start Time: 15:45 Procedure Stop Time: 17:20 Select all DRAINS/GRAFTS/IMPLANTS that apply: Implanted device Implanted device details: Synthes Estimated Blood Loss: 15 Specimen collected: No Description of surgery: Preoperative diagnosis: Right distal third tibial shaft fracture displaced spiral fracture Postoperative diagnosis: Same Procedure: Intramedullary rodding of the right tibia, suprapatellar approach Anesthesia: [General] Implants: Synthes intramedullary tibial jessie size [id number], [With 2 proximal Medial to lateral screws and 2 distal medial to lateral screws] EBL: 15 Complications: None Condition: Stable to PACU Tourniquet time: 0 minutes Indication for procedure: 29-year-old male status post fall down the stairs sustaining a displaced spiral distal tibia fracture and a corresponding fibular shaft fracture we discussed operative versus nonoperative intervention specifically intramedullary rodding of the left tibia Risk benefits and alternatives were reviewed including risk of bleeding infection nerve, artery, bone, tissue damage, blood clot need for further surgery and continued pain.Postoperative expectations Procedure: Patient was in the preoperative holding area once again the upper extremity was then a identified by both patient and physician and was marked. Patient was met by anesthesia and brought back to the operating a wheeled cart transfer the upper table supine position. Anesthesia was started. A well-padded tourniquet was placed on the operative thigh but was not inflated. Patient was prepped and draped in usual sterile fashion a timeout was called ensure the proper patient procedure and extremity were being contemplated. A sterile bump was placed underneath the knee and under fluoroscopy was used to identify the medial slope of the lateral tibial spine . 2 fingerbreadths proximal to the patella telemetry a 4 cm incision was made down through skin and subcutaneous tissue , electrocautery was used. Quadriceps was identified it was incised in line with its fibers, with the knee flexed 10 degrees a flexible protective sleeve was passed underneath the patella to the starting point on the tibial plateau. This was checked in both AP and lateral projections and a guidewire was advanced through the sleeve. Once were satisfied with the placement the guidewire we used the opening reamer through the protective sleeve we then placed a ball-tipped guidewire down through the canal and advanced it to the fracture site but not past it. We then tried to do a closed reduction of the fracture site but could not achieve adequate alignment therefore used stab incisions and hemostats to bluntly dissected the bone and a [id number] reduction clamp was used across fracture site to temporarily hold the fracture in place. The guidewire was then advanced across the fracture site and then proceeded to ream over the guidewire until getting to a size 10 reamer with significant cortical chatter to allow the purchase of a 9 mm jessie. We did measure and place corresponding 390 mm length by 9 mm diameter jessie through the protective sleeve down the shaft and past fracture site we then proceeded to place a jig on the proximal end of the nail to place 2 medial lateral screws through percutaneous incisions proximally this was repeated for 2 distal screws however there is no aiming arm for the distal screws we did use perfect [place] technique and was able to achieve this following this the joint was thoroughly irrigated with saline all of the incision sites were thoroughly irrigated as well and closed. We did use #1 Vicryl for the quadriceps tendon followed by 2-0 Vicryl in the subcutaneous tissues and reg in the skin all the incisions were checked and injected with Marcaine with epinephrine and a sterile dressing was applied in the form of Xeroform 4 x 4 ABD Webril and an Harlan wrap. Patient tolerated procedure well there is no intraoperative complications fluoroscopic images were saved to PACS system. All counts were correct and patient was transferred to PACU in stable condition Surgical Findings: Displaced tibial and fibular shaft fracture Complications Complications: No Admit VTE Documentation VTE Mechan Device Prophylaxis: SCD's
--- NOTE | 2025-04-08 17:37 | PCM.POST.ANE ---
Anesthesia: Postop Eval I Current Vital Signs Temperature: 97.8 F Pulse Rate: 103 Blood Pressure: 152/89 Respiratory Rate: 20 Pulse Ox: 95 Oxygen Delivery Method: Non-Rebreather Oxygen Flow Rate (L/min): 8 Assessment Airway patent: Yes Spontaneous unlabored respirations: Yes Mental status: Asleep nausea: No Vomiting: No Anesthesia Complication: No Fluid Hydration Crystalloid volume administer (ml): 800 Total IV fluid infused: 800 Progress Note Anesthesia document: Postop Eval 1 completed: Yes
--- NOTE | 2025-04-08 18:04 | POSTOPAN2_ITS ---
Anesthesia Postop Eval I Sum Postop Eval Completion status Anesthesia document: Postop Eval 1 completed: Yes Anesthesia Postop Eval I Summary Anesthesia Postop Eval I Summary: Anesthesia Postop Eval I: Assessment Summary Airway patent Yes 04/08/25 17:38 EQUIPMENT [email or web address].[email or web address] Spontaneous unlabored Yes 04/08/25 17:38 EQUIPMENT [email or web address].SHOF respirations Mental status Asleep 04/08/25 17:38 EQUIPMENT [email or web address].SHOF nausea No 04/08/25 17:38 EQUIPMENT CLEANER.SHOF Vomiting No 04/08/25 17:38 EQUIPMENT [email or web address].SHOF Anesthesia Postop Eval I: Fluid Summary Crystalloid volume administer 800 04/08/25 17:38 EQUIPMENT CLEANER.SHOF (ml) Colloids volume administered ( ml) Blood Product volume administered (ml) Total IV fluid infused 800 04/08/25 17:38 EQUIPMENT [email or web address].SHOF Anesthesia Postop Eval I: Summary Notes Anesthesia Complication No 04/08/25 17:38 EQUIPMENT [email or web address].SHOF Anesthesia Complication Comment: Post-operative progress note Anesthesia: Postop Eval II Evaluation Mental status: Awake and Calm Pain Level: 1 nausea: No Vomiting: No Complications Anesthesia Complication: No
--- NOTE | 2025-04-08 18:04 | PCM.POSTANE2 ---
Anesthesia Postop Eval I Sum Postop Eval Completion status Anesthesia document: Postop Eval 1 completed: Yes Anesthesia Postop Eval I Summary Anesthesia Postop Eval I Summary: Anesthesia Postop Eval I: Assessment Summary Airway patent Yes 04/08/25 17:38 TELEVISION NEWS VIDEO EDITOR.[email or web address] Spontaneous unlabored Yes 04/08/25 17:38 TELEVISION NEWS VIDEO EDITOR.SHOF respirations Mental status Asleep 04/08/25 17:38 TELEVISION NEWS VIDEO EDITOR.SHOF nausea No 04/08/25 17:38 TELEVISION NEWS VIDEO EDITOR.SHOF Vomiting No 04/08/25 17:38 TELEVISION NEWS VIDEO EDITOR.SHOF Anesthesia Postop Eval I: Fluid Summary Crystalloid volume administer 800 04/08/25 17:38 TELEVISION NEWS VIDEO EDITOR.SHOF (ml) Colloids volume administered ( ml) Blood Product volume administered (ml) Total IV fluid infused 800 04/08/25 17:38 TELEVISION NEWS VIDEO EDITOR.SHOF Anesthesia Postop Eval I: Summary Notes Anesthesia Complication No 04/08/25 17:38 TELEVISION NEWS VIDEO EDITOR.SHOF Anesthesia Complication Comment: Post-operative progress note Anesthesia: Postop Eval II Evaluation Mental status: Awake and Calm Pain Level: 1 nausea: No Vomiting: No Complications Anesthesia Complication: No
[2025-04-08] MEDS: Cefazolin 2 GM in 0.9% Normal Saline (100mL Bag) 100 ML IV (22:11)
[2025-04-09 04:14] VITALS: BP 137/77; PULSE 91; RESP 16; TEMP 36.4; O2SAT 98
[2025-04-09] MEDS: Cefazolin 2 GM in 0.9% Normal Saline (100mL Bag) 100 ML IV ×2 (05:54→13:29)
[2025-04-09 09:22] VITALS: BP 145/78; PULSE 106; RESP 18; TEMP 36.6; O2SAT 96
[2025-04-09] MEDS: APIXABAN 2.5 MG TABLET (WCH) PO (09:29)
[2025-04-09] MEDS: FLU VACCINE 2025-26(6MOS UP) 45 MCG/0.5 ML SYRINGE IM (09:56)
--- NOTE | 2025-04-09 11:49 | CASEMGMT ---
Addendum entered by Yris Diaz 04/09/25 14:39: PT order faxed to [facility] at this time. Addendum entered by Yris Diaz 04/09/25 13:44: JACKELYN BRITO into pt room, pt has not yet gotten his walker delivered. Pt is aware of no cost for eliquis. Pt is aware of need for PT. Provided him with a list of local facilities to have therapy, pt chose [facility]. TC to [facility], spoke with Page, first available appt is next Wed at 0830. Pt aware and placed on dc instructions. Addendum entered by Yris Diaz 04/09/25 13:33: TC to [facility], they used savings card for eliquis, no cost. Original Note: Spoke with therapy who states pt will need FWW. [facility]
--- NOTE | 2025-04-09 12:24 | PN.ORTHO_ITS ---
Subjective Subjective Seen and examined. Doing okay. Pain controlled. No fevers chills nausea vomit shortness of breath or chest pain no questions. He did physical therapy Objective Data Objective Data Vital Signs: Vital Signs Temp Pulse Resp BP Pulse Ox O2 Del Method O2 Flow Rate 98 F 106 H 18 145/78 H 96 Room Air 2 04/09/25 09:22 04/09/25 09:22 04/09/25 09:22 04/09/25 09:22 04/09/25 09:22 04/09/25 09:22 04/09/25 04:14 Oxygen Flow Rate (L/min) [5] 3 Oxygen Flow Rate (L/min) [4] 3 Oxygen Flow Rate (L/min) [3] 3 Oxygen Flow Rate (L/min) [2] 2 Oxygen Flow Rate (L/min) [1 ( 2 Initial Baseline)] Oxygen Flow Rate (L/min) 2 Oxygen Delivery Method [5] Room Air Oxygen Delivery Method [4] Nasal Cannula Oxygen Delivery Method [3] Nasal Cannula Oxygen Delivery Method [1 ( Nasal Cannula Initial Baseline)] Oxygen Delivery Method Room Air Weight: 224 lb 13.944 oz Body Mass Index (BMI) 27.4 Intake & Output: Intake and Output for Last 24 Hours 04/07/25 04/08/25 04/09/25 23:59 23:59 23:59 Intake Total 0 / 0 2068.33 / 2368.33 1859.75 / 1859.75 Output Total 715 / 1465 1500 / 1500 Balance 0 / 0 1353.33 / 903.33 359.75 / 359.75 Lab / Micro Data 04/08/25 04:36 04/08/25 04:36 Radiography Diagnostic Testing: Radiology Impression Tibia/Fibula X-Ray 04/08/25 15:39 IMPRESSION: As per findings. Reading Location: [place] [address] Physical Exam Const alert, oriented x3 and no apparent distress General Appearance: cooperative and well developed Extremity Extremity Narrative: Right lower extremity dressings clean dry intact compartment soft neurovascular intact Assessment & Plan Assessment/Plan (1) Closed fracture of tibia and fibula: QUALIFIERS: Encounter type: initial encounter Laterality: right Qualified Code(s): S82.201A - Unspecified fracture of shaft of right tibia, initial encounter for closed fracture; S82.401A - Unspecified fracture of shaft of right fibula, initial encounter for closed fracture PLAN: Plan Patient doing well pain controlled. No complaints or concerns feels ready for discharge DC home follow-up in the office 2 weeks will need outpatient physical therapy DVT prophylaxis Eliquis 2.5 mg twice daily for 4 weeks
--- NOTE | 2025-04-09 12:26 | DCINST_ITS ---
Discharge Instructions DC O2, CPAP, BIPAP needs Home O2 Discharge instructions: No Dressing / Incision Call your doctor if you observe: Shortness of breath and Chest pain Additional Dressing/Incision Instructions:: Do not remove dressing until Monday then may remove all dressings and begin showering daily and wash incisions daily with antibacterial soap and warm water but do not submerge in tub. Encourage knee and ankle range of motion. Elevation of right lower extremity when not ambulating. Call to set up physical therapy appointment if not already done so from the hospital. Call with any questions or concerns. Do not take narcotic medication other than what was prescribed or different than prescribing directions. Narcotic medication can be addictive only take what is needed and supplement with axfacz-dso-pjuig Tylenol. Do not mix narcotics and alcohol. . Do not allow any animals near the incisions they must be kept clean to avoid infection. After first dressing is removed replace with large Band-Aids or dry dressing if needed for more drainage. Try to avoid adhesives across the knee. You cannot take any NSAIDs while on the blood thinner. Follow Up Care Please Follow Up With: Franc Canales DO When: 2 weeks Test Results: Test results from this visit will be discussed in further detail at your follow- up appointment, if applicable. Discharge Plan Admission Admit Date/Time: 04/07/25 23:53 Primary Reason for Your Visit: Right tibia fracture IM rodding Attending Provider: Franc Canales Primary Care Provider: Willa Connor Primary Consulting Providers: Franc Canales Discharge Orders/Prescriptions Prescriptions: New acetaminophen 500 mg tablet 1,000 mg PO Q6H Qty: 100 0RF oxycodone 5 mg tablet 5 - 10 mg PO Q6H PRN (Reason: pain) 7 Days Qty: 40 0RF Eliquis 2.5 mg tablet 2.5 mg PO BID Qty: 60 0RF Continued lamotrigine [Lamictal] 25 mg tablet 50 mg PO DAILY escitalopram oxalate [Lexapro] 10 mg tablet 10 mg PO DAILY mirtazapine 7.5 mg tablet 7.5 mg PO QPM Referrals / Follow Up: [facility] Physician,Willa Primary [Primary Care Provider, Medical] Disposition Discharge Orders: Discharge Patient (Routine); Ordered 04/09/25 Ordered By: Dr. Franc Canales
--- NOTE | 2025-04-09 13:56 | PHA.DC.MC.R ---
Pharmacy ID Med Rec Counseling Pharmacy Service has performed discharge medication reconciliation and counseling for this patient. Patient requested meds to beds, this [facility] called retail and asked for delivery. 1. ACETAMINOPHEN 1000MG PO Q8 2. APIXABAN 2.5MG PO BID 3. OXYCODONE 5-10MG PO Q6H PRN PAIN The patient's discharge medication list was reviewed for discrepancies and discrepancies were resolved. The patient was counseled on the following discharge medications and changes in medications for homegoing were reviewed. The Reason for Use, instructions for use, and potential side effects were reviewed for all new medications. The patient's questions regarding all of their medications were answered. The patient was able to verbally demonstrate an understanding of their discharge medications. Patient counseled by pharmacy stock clerkOnel. Medications at Discharge Home Medications escitalopram oxalate 10 mg tablet (Lexapro) 10 mg PO DAILY depression/anxiety 04/07/25 lamotrigine 25 mg tablet (Lamictal) 50 mg PO DAILY mood stabilization 04/07/25 mirtazapine 7.5 mg tablet 7.5 mg PO QPM sleep 04/08/25 acetaminophen 500 mg tablet 1,000 mg (2 x 500 mg) PO Q6H #100 tabs 04/09/25 apixaban 2.5 mg tablet (Eliquis) 2.5 mg PO BID #60 tabs 04/09/25 oxycodone 5 mg tablet 5 - 10 mg (1 - 2 x 5 mg) PO Q6H PRN pain 7 days #40 tabs 04/09/25
[2025-04-09 14:26] VITALS: BP 126/70; PULSE 117; RESP 16; TEMP 37.1; O2SAT 96
== END 2025-04-09 15:26 | disposition home or self-care (01) | DRG 494 ==
LOC: ED 23:45 → MS3 04-08 00:24
PROVIDERS: Family Medicine; Admitting Provider Orthopaedic Surgery; Emergency Provider Emergency Medicine; Visit Provider Orthopaedic Surgery
PROC: 0QSG36Z Reposition Right Tibia with Intramedullary Internal Fixation Device, Percutaneous Approach (ICD-10-PCS; principal; 2025-04-08 14:40)
DX: S82.241A Displaced spiral fracture of shaft of right tibia, initial encounter for closed fracture (principal); F32.A Depression, unspecified; S82.401A Unspecified fracture of shaft of right fibula, initial encounter for closed fracture; W10.9XXA Fall (on) (from) unspecified stairs and steps, initial encounter; F41.9 Anxiety disorder, unspecified; Z79.899 Other long term (current) drug therapy
CPT/HCPCS: 36415; 73590; 73610; 76000; 80048; 85025; 85610; 94668; 97162; 97802; 99152; 99285; C1713; A4216; J2405

== ENCOUNTER → 2025-04-14 | Outpatient (CLI) | payer OTHER, SELFPAY ==
--- NOTE | 2025-04-14 12:41 | VDLE_ITS ---
Reason For Study Reason For Study: RLE Swelling / Post Op RIGHT GSV is normal. CFV is compressible, spontaneous, phasic, competent and demonstrates normal augmentation. FV is compressible, spontaneous, phasic, competent and demonstrates normal augmentation. POP V is compressible, spontaneous, phasic, competent and demonstrates normal augmentation. T/P Trunk is compressible. Acute deep vein thrombosis is noted in the Gastrocnemius V. It is dilated and NONCOMPRESSIBLE. PTV is compressible. RT PerV is compressible. Procedure This is a venous duplex using B-mode, color flow and spectral Doppler. Exam performed in department. The exam was diagnostic. A preliminary report was called and/or faxed to [facility] JACKELYN Fallon. VL/Venous Duplex US, Unilateral Interpretation Summary Acute deep vein thrombosis is noted in the right gastrocnemius vein. The remain phong of the right lower extremity deep venous system is patent and compressible. Valvular competence appears intact wi thin the proximal deep venous system on the right . The right great saphenous vein appears patent and compressible segm entally. Ordering Physician: Franc Canales Referring Physician: N/A Performed By: James Deshpande RVT
== END | disposition home or self-care (01) ==
LOC: CVS 12:40
PROVIDERS: Referring Provider Orthopaedic Surgery; Visit Provider Orthopaedic Surgery
DX: M79.89 Other specified soft tissue disorders (principal); I74.3 Embolism and thrombosis of arteries of the lower extremities; I70.92 Chronic total occlusion of artery of the extremities
CPT/HCPCS: 93971